=== PATIENT | female | born 1955 | race Caucasian/White ===

== ENCOUNTER → 2023-10-07 13:04 | Outpatient (BNVA) | payer MEDICARE, SELFPAY | PROVIDERS: PCP Nurse Practitioner Family; Visit Provider Podiatrist Foot & Ankle Surgery | DX: M21.611 Bunion of right foot; M21.612 Bunion of left foot; M20.11 Hallux valgus (acquired), right foot; M20.12 Hallux valgus (acquired), left foot | CPT/HCPCS: 99204 ==

== ENCOUNTER 2023-10-10 07:52 | Day surgery (SDC) | payer MEDICARE, SELFPAY ==
[2023-10-10] VITALS (10 sets, daily range): BP systolic 110–196; BP diastolic 65–93; PULSE 70–94; RESP 12–18; TEMP 36.1–36.6; O2SAT 95–98; BMI 26.6
--- NOTE | 2023-10-10 | XR_ITS ---
WS: [id number] C-ARM RADIOGRAPHS RIGHT FIRST TOE; 2 IMAGES HISTORY: METATARSAL PHALANGEAL JOINT FUSION, OR PIC COMPARISON: None available. Plate and screw fixation across the first metatarsophalangeal joint. Mild hallux valgus. IMPRESSION: Plate and screw fusion across the first metatarsophalangeal joint.
[2023-10-10] MEDS: CELEcoxib 200 mg Capsule 400 MG PO (08:29)
[2023-10-10] MEDS: sodium chloride 0.9% 1,000 ML 30 ML IV (08:30)
[2023-10-10] MEDS: gabapentin 300 mg Capsule PO (08:30)
--- NOTE | 2023-10-10 08:37 | ANES.PREANE2 ---
Pre-Anesthetic Assessment Height/Weight: Height 1.7 m Weight 77.111 kg Temp Pulse Resp BP Pulse Ox O2 Del Method 97.0 F L 70 16 188/89 98 Room Air 10/10/23 08:02 10/10/23 08:02 10/10/23 08:02 10/10/23 08:02 10/10/23 08:02 10/10/23 08:03 Preop Diagnosis: Right bunion Operation Date: 10/10/23 09:40 Proposed Procedures p Arthrodesis Foot/ Right first metatarsal phalangeal joint fusion(Right) - Alfonso Frederick DPM Last intake: Intake Last Liquid Date 10/09/23 Last Liquid Time 23:00 Last Solid Date 10/09/23 Last Solid Time 18:00 Social No alcohol and No tobacco Exam alert, oriented x 3, clear to auscultation bilaterally and regular rate & rhythm Airway Submandibular: within normal limits Cervical ROM: within normal limits Mallampati: Class I History/ROS No significant history except as noted Anesthetic Plan ASA status: 2 Anesthesia: MAC Medications/Allergies Home Medications Medication Instructions Recorded Confirmed Last Taken Type aspirin 81 mg chewable tablet 81 mg PO DAILY 10/07/23 10/09/23 10/06/23 History hydrocodone 10 mg-acetaminophen 1 tab PO Q6H PRN pain 7 days #28 10/10/23 Unknown Rx 325 mg tablet tabs Allergies Allergy/AdvReac Type Severity Reaction Status Date / Time No Known Allergies Allergy Verified 10/09/23 16:19 Current Medications Generic Name Dose Route Start Last Admin Trade Name Freq PRN Reason Stop Dose Admin Sodium Chloride 1,000 mls @ 30 mls/hr 10/10/23 08:15 10/10/23 08:30 Sodium Chloride 0.9% IV 10/11/23 08:14 30 mls/hr .Q24H MELANIE Administration PFSH Anesthesia Surgical History (Updated 10/10/23 @ 08:34 by Alfonso Frederick DPM) History of bunionectomy of both great toes Data Anesthesia Cardiac Studies: No Data to Display
--- NOTE | 2023-10-10 09:37 | P.HPUD_ITS ---
Surgery/Procedure H&P Update DATE OF PROCEDURE: October 10, 2023 DATE H&P PERFORMED: 10/07/23 H&P UPDATE INFORMATION: I have reviewed H&P completed within last 30 days, I have examined patient prior to procedure, No changes to prior documentation and H&P is in [facility] EMR on date indicated PREOP DIAGNOSIS: Right bunion PLANNED PROCEDURE: Operation Date: 10/10/23 09:40 Proposed Procedures p Arthrodesis Foot/ Right first metatarsal phalangeal joint fusion(Right) - Alfonso Frederick DPM
[2023-10-10] MEDS: ceFAZolin 2,000 MG in sodium chloride 0.9% (plus) 50 ML 100 MG IV (09:56)
[2023-10-10] MEDS: BUPivacaine liposome 13.3 mg/mL SDV 10 mL 266 MG INJECTION (10:23)
[2023-10-10] MEDS: BUPivacaine 0.5% INJ 30 mL INJECTION (10:24)
--- NOTE | 2023-10-10 10:58 | P.OP_ITS ---
Operative Report Date of procedure: October 10, 2023 Pre-op diagnosis: Hallux valgus, right foot. Right foot pain. Post-op diagnosis: Same Procedure done: Right first metatarsal phalangeal joint fusion. CPT code 84648 Implants: [place] first MTP plate with 2.7 and 3.5 millimeter screws and 3 mm homerun screw, 3-0 Vicryl, 4-0 Vicryl, 4-0 nylon Specimens removed/disposition: None Pathology: None Surgeon: Alfonso Frederick DPM Child Protective Services Specialist: Gt LEWIS Estimated blood loss: 5 47 IV fluids: 0 Urine output: 0 Complications: None Brief History: 68 year old female patient presenting to clinic for evaluation of bilateral foot pain. Right causes more pain than left. Patient reports having a post operative history of bunion surgery at the age of [age] year old to left and right foot. Surgery took place in [facility]. Patient states that at the end of day her right great toe will stand straight up. She has tried wide toe box shoes, toe spacers, and anti-inflammatory without pain relief. Patient is already been wearing wider and accommodative shoes, has already been utilizing toe spacers and padding and is already taking anti-inflammatories. States that she can only be on her feet for about 2 hours and then she is down for the rest of the day due to bunion pain. Right foot is most severe. Describes the nature of the pain as sharp stabbing. Due to having failed conservative treatments she is wishing to discuss surgical intervention as her right bunion pain has affected her overall quality of life, has pain with everyday living such as standing and walking can only perform about 2 hours of activity in the morning and then is sedentary due to bunion pain. Recommended right first metatarsophalangeal joint fusion. I reviewed at length with the patient, the risks, potential complications, benefits, alternatives, expectations, and typical outcomes associated with the surgery. The risks and potential complications were explained in detail, including but not limited to infection, wound dehiscence or soft tissue complications, bleeding and hematoma, chronic edema, neuritis or nerve damage producing numbness or chronic pain, CRPS, failure to relieve pain or worsening pain, thick / painful / unsightly scar, limited motion / stiffness, malposition, delayed union, malunion, or nonunion, fracture, reaction to implants, anesthetic complications, venous thromboembolism, and deformity recurrence. I discussed the notion of no regrets with the patient as it pertains to complications and outcomes. The patient seemed to understand the nature of the proposed care and required convalescence. They asked appropriate questions, answered to their satisfaction. They are aware no guarantees can be made as to a satisfactory outcome and they understand there may be other possible unforeseen complications or outcomes not listed here that will be treated accordingly if they arise. There were no written or implied guarantees given to the patient. They gave informed consent to proceed. Hallux noted to be an abducted position. Tibial sesamoid position: 6. 1 - 2 IM angle is 17 degrees Hallux abductus angle is 40 degrees Metatarsal adductus angle is 2 degrees Sieberg index of 2 mm Right first metatarsophalangeal joint fusion scheduled outpatient October 10, 2023 Procedure: Under mild sedation the patient was brought to the operating room and remained on the gurney in supine position. A timeout is performed. Anesthesia was then administered by the anesthesia service. Local anesthesia injected by myself consisting of 20 cc of 0.5% Marcaine plain and a right Narvaez block fashion followed by 20 cc of Exparel infiltrated subcutaneously in a grid like fashion proximal to the operative site right foot. Well-padded pneumatic tourniquet applied to the right ankle. The right lower extremity was scrubbed, prepped and draped utilizing normal aseptic technique. Right foot was then exanguinated with an Esmarch bandage and tourniquet was inflated to 250 mmHg. Attention was directed to the right foot where a nonreducible bunion was appreciated overriding the second toe. A incision was planned out in a curvilinear fashion at the dorsal medial aspect of the right first metatarsal phalangeal joint through skin with a #15 blade with dissection carried down through subcutaneous tissue to the layer of periosteum and joint capsule utilizing sharp and blunt technique. Care was taken to retract and preserve neurovascular and tendinous structures. All bleeders were ligated and cauterized as necessary. Linear capsulotomy performed periosteal incision with the head of the first metatarsal being freed from its soft tissue and capsular attachments as well as the base of the proximal phalanx. These were then denuded of the articular surface and prepped for fusion with subchondral drilling. The hallux was held in a rectus position in the frontal plane, slightly valgus and slightly dorsiflexed and temporarily fixated followed by fixation with a dorsal locking plate provided by [place] with 2.7 millimeter screws distally and 3.5 millimeter screws proximally. 3 mm homerun screw was then advanced from distal medial to proximal lateral with excellent bony apposition and compression noted. Temporary fixation was removed. The incision was then irrigated with copious amounts of sterile skin solution. Intraoperative simulated weightbearing with a metal plate demonstrated excellent position in all 3 planes of the left great toe. Hardware did not violate adjacent joints and was noted to be excellent in all 3 planes. Excellent bony apposition and compression noted. The incision was further irrigated and then closed in a layered fashion. Capsule and periosteum reapproximated with 3-0 Vicryl. Subcutaneous tissue reapproximated with 4-0 Vicryl and skin with 4-0 nylon. Incision was dressed with Adaptic, sterile 4 x 4's, Kerlix and Andrew wrap followed by application of a cam boot to the right lower extremity. The tourniquet was then deflated and a prompt hyperemic response was noted to the distal digits of the right foot. Patient tolerated the procedure and anesthesia well and was transferred to the PACU with vital signs stable and vascular status intact. Following a period of postoperative monitoring she will be discharged home is to be weightbearing as tolerated, preferring heel touch for transfers with cam boot. Otherwise she is to elevate and rest her right foot. She was given at home care instructions, scheduled follow-up and my cell phone number to contact me with any postoperative questions or concerns.
--- NOTE | 2023-10-10 10:58 | W.PM.BPON ---
Date of Procedure: 10/10/23 Surgeon: Alfonso Frederick DPM Smocking Machine Operator(s): arik Motta Procedure(s) performed: right first metatarsal phalangeal joint fusion Findings of the procedure(s): None Estimated blood loss: 2cc Specimen(s) removed: none Post-operative diagnosis: Right bunion No complications
--- NOTE | 2023-10-10 11:36 | ANE.PACU2 ---
Inpatient post-anesthesia follow up: Vital signs: Temperature 97.3 F Pulse Rate 76 Respiratory Rate 16 Blood Pressure 178/88 Pulse Oximetry 98 Oxygen Delivery Me thod Room Air Oxygen Flow Rate Fraction of Inspir ed Oxygen Hydration adequate: Yes Nausea and vomiting: No Pain level: 2 Mental status: Baseline
[2023-10-10] MEDS: labetalol 5 mg/mL SDV 20mL IV (12:20)
--- NOTE | 2023-10-10 13:01 | PC.NURSE ---
BP 187/77, informed Anesthesiologist. Labetalol 5mg IV ordered. Monitored pt for approx 30 mins post administration. BP 165/74. Pt has no complaints of pain, AOx4.
== END 2023-10-10 12:56 | disposition home or self-care (01) ==
PROVIDERS: PCP Nurse Practitioner Family; Visit Provider Podiatrist Foot & Ankle Surgery
PROC: (CPT 28740; principal; 2023-10-10 09:30)
DX: M20.11 Hallux valgus (acquired), right foot (principal); Z79.82 Long term (current) use of aspirin
CPT/HCPCS: 28750; 73620; 76000; C1713; C9290; J0690; J2704; J3010; J3490; J7030

== ENCOUNTER → 2023-10-23 15:00 | Outpatient (BNVA) | payer MEDICARE, SELFPAY | PROVIDERS: PCP Nurse Practitioner Family; Visit Provider Podiatrist Foot & Ankle Surgery | DX: Z98.890 Other specified postprocedural states (principal) | CPT/HCPCS: 73630; 99024 ==

== ENCOUNTER → 2023-11-06 13:11 | Outpatient (BNVA) | payer MEDICARE, SELFPAY | PROVIDERS: PCP Nurse Practitioner Family; Visit Provider Podiatrist Foot & Ankle Surgery | DX: Z98.890 Other specified postprocedural states (principal) | CPT/HCPCS: 73630; 99024 ==

== ENCOUNTER → 2023-11-20 12:51 | Outpatient (BNVA) | payer MEDICARE, SELFPAY | PROVIDERS: PCP Nurse Practitioner Family; Visit Provider Podiatrist Foot & Ankle Surgery | DX: Z98.890 Other specified postprocedural states (principal) | CPT/HCPCS: 73630; 99024 ==

== ENCOUNTER → 2023-12-04 12:46 | Outpatient (BNVA) | payer MEDICARE, SELFPAY | PROVIDERS: PCP Nurse Practitioner Family; Visit Provider Podiatrist Foot & Ankle Surgery | DX: Z98.890 Other specified postprocedural states (principal) | CPT/HCPCS: 73630; 99024 ==

== ENCOUNTER → 2024-03-24 15:00 | Outpatient (BNVA) | payer MEDICARE, SELFPAY | PROVIDERS: PCP Nurse Practitioner Family; Visit Provider Podiatrist Foot & Ankle Surgery | DX: Z98.890 Other specified postprocedural states (principal); M21.612 Bunion of left foot | CPT/HCPCS: 99214 ==

== ENCOUNTER 2024-04-09 06:50 | Day surgery (SDC) | payer MEDICARE, SELFPAY ==
[2024-04-09] VITALS (10 sets, daily range): BP systolic 129–219; BP diastolic 79–100; PULSE 60–76; RESP 14–18; TEMP 36.1–36.6; O2SAT 95–99; BMI 26.6
--- NOTE | 2024-04-09 | XR_ITS ---
WS: [id number] Examination: XR foot LT 2V [id number] Reason for Exam: [facility] Date: April 09, 2024 Comparison: September 25, 2023 Findings: Postop changes are identified with plate and screw fixation across the first metatarsal phalangeal fredrick int with osteotomy/bunionectomy. Please see intraoperative note for full explanation of findings and the procedure.
--- NOTE | 2024-04-09 07:06 | W.PM.OPSUD ---
Surgery/Procedure H&P Update DATE OF PROCEDURE: April 09, 2024 DATE H&P PERFORMED: 10/07/23 H&P UPDATE INFORMATION: I have reviewed H&P completed within last 30 days, I have examined patient prior to procedure, No changes to prior documentation and H&P is in [facility] EMR on date indicated CHANGES TO PREVIOUS DOCUMENTATION: None PREOP DIAGNOSIS: Left bunion PRIMARY INDICATION FOR PROCEDURE: hallux valgus, left PLANNED PROCEDURE: Operation Date: 04/09/24 08:20 Proposed Procedures p Left first metatarsal phalangeal joint fusion(Left) - Alfonso Frederick DPM
[2024-04-09] MEDS: gabapentin 300 mg Capsule PO (07:32)
[2024-04-09] MEDS: CELEcoxib 200 mg Capsule 400 MG PO (07:32)
[2024-04-09] MEDS: sodium chloride 0.9% 1,000 ML 30 ML IV (07:32)
--- NOTE | 2024-04-09 08:34 | ANES.PREANE2 ---
Pre-Anesthetic Assessment Height/Weight: Height 1.7 m Weight 77.111 kg Temp Pulse Resp BP Pulse Ox O2 Del Method 97.3 F L 60 18 166/79 99 Room Air 04/09/24 07:02 04/09/24 07:02 04/09/24 07:02 04/09/24 07:02 04/09/24 07:02 04/09/24 07:02 Preop Diagnosis: Left bunion Operation Date: 04/09/24 08:20 Proposed Procedures p Left first metatarsal phalangeal joint fusion(Left) - Alfonso Frederick DPM Familial anesthetic complications: None Was Beta Steve taken within 24 hours: N/A Was Clonidine taken within 24 hours: N/A Last intake: Intake Last Liquid Date 04/08/24 Last Liquid Time 21:00 Last Solid Date 04/08/24 Last Solid Time 20:00 Social No alcohol and No tobacco Exam alert, oriented x 3, clear to auscultation bilaterally and regular rate & rhythm Airway Mallampati: Class II Dentition: full CV/HEM Hypertension Anesthetic Plan ASA status: 2 Anesthesia: MAC Risk of > 500 ml blood loss (7ml/kg in children): No Medications/Allergies Home Medications Medication Instructions Recorded Confirmed Last Taken Type losartan 25 mg tablet 25 mg PO DAILY 04/08/24 04/08/24 04/08/24 History oxycodone-acetaminophen 10 mg-325 1 tab PO Q6H PRN pain 7 days #28 04/09/24 Unknown Rx mg tablet (Percocet) tabs Allergies Allergy/AdvReac Type Severity Reaction Status Date / Time No Known Allergies Allergy Verified 03/24/24 15:15 Current Medications Generic Name Dose Route Start Last Admin Trade Name Freq PRN Reason Stop Dose Admin Sodium Chloride 1,000 mls @ 30 mls/hr 04/09/24 07:00 04/09/24 07:32 Sodium Chloride 0.9% IV 04/10/24 06:59 30 mls/hr .Q24H MELANIE Administration PFSH Anesthesia Surgical History History of bunionectomy of both great toes Social History Smoking and tobacco/nicotine status: never used tobacco/nicotine Data Anesthesia Cardiac Studies: No Data to Display
[2024-04-09] MEDS: ceFAZolin 2,000 mg SDV 2000 MG IVP (09:02)
[2024-04-09] MEDS: BUPivacaine liposome 13.3 mg/mL SDV 20 mL 266 MG INFILTRATI (09:10)
[2024-04-09] MEDS: BUPivacaine 0.5% INJ 30 mL 20 ML INJECTION (09:10)
--- NOTE | 2024-04-09 10:04 | P.BOP_ITS ---
Date of Procedure: 11/14/23 Surgeon: Alfonso Frederick DPM Aircraft Systems Repairer(s): Juani Jimenez Procedure(s) performed: Left first metatarsal phalangeal joint fusion. Findings of the procedure(s): None Estimated blood loss: 2 mL Specimen(s) removed: None Post-operative diagnosis: Left hallux abductovalgus. Local MAC, gurney, supine, tourniquet time 36 minutes, male block performed with local anesthetic consisting of 20 cc of Marcaine and 20 cc of Exparel, no complications with anesthesia or surgery.
--- NOTE | 2024-04-09 10:05 | P.OP_ITS ---
Operative Report Date of procedure: April 09, 2024 Pre-op diagnosis: Left bunion Left hallux valgus Left foot pain Post-op diagnosis: Same Procedure done: Left first metatarsal phalangeal joint fusion. CPT code 37359 Implants: [place] 5 degrees first metatarsophalangeal joint primary arthrodesis plate with 2.7 millimeter screws distally and 3.5 millimeter screws proximally and 3 mm homerun screw, 3-0 Vicryl, 4-0 Vicryl, 4-0 nylon Specimens removed/disposition: No specimens Pathology: no pathology Surgeon: Alfonso Frederick DPM General Road Foreman: Juani Jimenez Estimated blood loss: 2 36 IV fluids: 0 Urine output: 0 Complications: None Brief History: 68 year old female patient here to discuss surgical treatment of her left foot. She has recovered very well after Right first metatarsal phalangeal joint fusion DOS: 10/10/23. Wishing to discuss surgical fixation of her left bunion, she has a severe bunion to the left making it difficult to wear any type issues. Has no longer been able to get relief wearing wide accommodative shoes, padding, spacing and anti-inflammatories. Patient has increased first intertarsal angle greater than 21, increased hallux valgus and tibial sesamoid position of 6 Patient failed conservative treatment measures consisting of wide accommodative shoes, padding and spacing, anti-inflammatories and activity modifications. Wishing to proceed with left hallux interphalangeal arthrodesis discussed Lap[place]us versus arthrodesis, risks and benefits of each, she settled on arthrodesis as her best option. I reviewed at length with the patient, the risks, potential complications, benefits, alternatives, expectations, and typical outcomes associated with the surgery. The risks and potential complications were explained in detail, including but not limited to infection, wound dehiscence or soft tissue complications, bleeding and hematoma, chronic edema, neuritis or nerve damage producing numbness or chronic pain, CRPS, failure to relieve pain or worsening pain, thick / painful / unsightly scar, limited motion / stiffness, malposition, delayed union, malunion, or nonunion, fracture, reaction to implants, anesthetic complications, venous thromboembolism, and deformity recurrence. I discussed the notion of no regrets with the patient as it pertains to complications and outcomes. The patient seemed to understand the nature of the proposed care and required convalescence. They asked appropriate questions, answered to their satisfaction. They are aware no guarantees can be made as to a satisfactory outcome and they understand there may be other possible unforeseen complications or outcomes not listed here that will be treated accordingly if they arise. There were no written or implied guarantees given to the patient. They gave informed consent to proceed. Procedure: Under mild sedation the patient was brought to the operating room and remained on the gurney in supine position. A timeout is performed. Anesthesia was then administered by the anesthesia service. Local anesthesia injected by myself consisting of 20 cc of 0.5% Marcaine plain and a right Narvaez block fashion followed by 20 cc of Exparel infiltrated subcutaneously in a grid like fashion proximal to the operative site right foot. Well-padded pneumatic tourniquet applied to the left ankle. The left lower extremity was scrubbed, prepped and draped utilizing normal aseptic technique. Left foot was then exanguinated with an Esmarch bandage and tourniquet was inflated to 250 mmHg. Attention was directed to the left foot where a nonreducible bunion was appreciated overriding the second toe. A incision was planned out in a curvilinear fashion at the dorsal medial aspect of the left first metatarsal phalangeal joint through skin with a #15 blade with dissection carried down through subcutaneous tissue to the layer of periosteum and joint capsule utilizing sharp and blunt technique. Care was taken to retract and preserve neurovascular and tendinous structures. All bleeders were ligated and caut erized as necessary. Linear capsulotomy performed periosteal incision with the head of the first metatarsal being freed from its soft tissue and capsular attachments as well as the base of the proximal phalanx. These were then denuded of the articular surface and prepped for fusion with subchondral drilling. The hallux was held in a rectus position in the frontal plane, slightly valgus and slightly dorsiflexed and temporarily fixated followed by fixation with a dorsal locking plate provided by [place] with 2.7 millimeter screws distally and 3.5 millimeter screws proximally. 3 mm homerun screw was then advanced from distal medial to proximal lateral with excellent bony apposition and compression noted. Temporary fixation was removed. The incision was then irrigated with copious amounts of sterile skin solution. Intraoperative simulated weightbearing with a metal plate demonstrated excellent position in all 3 planes of the left great toe. Hardware did not violate adjacent joints and was noted to be excellent in all 3 planes. Excellent bony apposition and compression noted. The incision was further irrigated and then closed in a layered fashion. Capsule and periosteum reapproximated with 3-0 Vicryl. Subcutaneous tissue reapproximated with 4-0 Vicryl and skin with 4-0 nylon. Incision was dressed with Adaptic, sterile 4 x 4's, Kerlix and Andrew wrap followed by application of a cam boot to the left lower extremity. The tourniquet was then deflated and a prompt hyperemic response was noted to the distal digits of the left foot. Patient tolerated the procedure and anesthesia well and was transferred to the PACU with vital signs stable and vascular status intact. Following a period of postoperative monitoring she will be discharged home is to be weightbearing as tolerated, preferring heel touch for transfers with cam boot. Otherwise she is to elevate and rest her left foot. She was given at home care instructions, scheduled follow-up and my cell phone number to contact me with any postoperative questions or concerns.
[2024-04-09] MEDS: hyDRALAzine 20 mg/mL INJ 1 mL 10 MG IVP (10:56)
--- NOTE | 2024-04-09 11:25 | ANE.PACU2 ---
Inpatient post-anesthesia follow up: Airway intact: Yes Vital signs: Temperature 97.0 F Pulse Rate 69 Respiratory Rate 18 Blood Pressure 179/80 Pulse Oximetry 96 Oxygen Delivery Me thod Room Air Oxygen Flow Rate Fraction of Inspir ed Oxygen Hydration adequate: Yes Nausea and vomiting: No Pain level: 1 Mental status: Baseline
== END 2024-04-09 11:26 | disposition home or self-care (01) ==
PROVIDERS: PCP Nurse Practitioner Family; Visit Provider Podiatrist Foot & Ankle Surgery
PROC: (CPT 28740; principal; 2024-04-09 08:10)
DX: M21.612 Bunion of left foot (principal); M20.12 Hallux valgus (acquired), left foot; I10 Essential (primary) hypertension
CPT/HCPCS: 28750; 73620; 76000; C1713; C9290; J0360; J0690; J2704; J3010; J3490; J7030

== ENCOUNTER → 2024-04-22 11:55 | Outpatient (BNVA) | payer MEDICARE, SELFPAY | PROVIDERS: PCP Nurse Practitioner Family; Visit Provider Podiatrist Foot & Ankle Surgery | DX: Z98.890 Other specified postprocedural states (principal); Z98.1 Arthrodesis status | CPT/HCPCS: 73630; 99024 ==

== ENCOUNTER → 2024-05-19 14:54 | Outpatient (BNVA) | payer MEDICARE, SELFPAY | PROVIDERS: PCP Nurse Practitioner Family; Visit Provider Podiatrist Foot & Ankle Surgery | DX: Z98.890 Other specified postprocedural states (principal); Z98.1 Arthrodesis status | CPT/HCPCS: 73630; 99024 ==

== ENCOUNTER → 2024-06-17 12:43 | Outpatient (BNVA) | payer MEDICARE, SELFPAY | PROVIDERS: PCP Nurse Practitioner Family; Visit Provider Podiatrist Foot & Ankle Surgery | DX: Z98.890 Other specified postprocedural states (principal); Z98.1 Arthrodesis status; I10 Essential (primary) hypertension | CPT/HCPCS: 73630; 99024 ==